=== PATIENT | female | born 1995 | race Two or more races ===

== ENCOUNTER 2023-08-10 17:41 | Emergency (ER) | payer OTHER ==
[~2023-08-10] VITALS: Ht 149.9 cm; Wt 59.0 kg
== END 2023-08-10 20:43 | disposition home or self-care (01) ==
LOC: ER 17:41
DX: S82.891A Other fracture of right lower leg, initial encounter for closed fracture (principal); X50.1XXA Overexertion from prolonged static or awkward postures, initial encounter; Y93.9 Activity, unspecified; Y92.9 Unspecified place or not applicable; Y99.9 Unspecified external cause status

== ENCOUNTER 2023-09-18 08:45 | Outpatient (CLI) | payer OTHER | END 2023-09-18 09:03 | disposition home or self-care (01) | LOC: RAD 08:45 | PROVIDERS: ATTEND Orthopaedic Surgery | DX: S92.351A Displaced fracture of fifth metatarsal bone, right foot, initial encounter for closed fracture (principal) ==

== ENCOUNTER 2023-10-23 10:02 | Outpatient (CLI) | payer OTHER | END 2023-10-23 10:13 | disposition home or self-care (01) | LOC: RAD 10:02 | PROVIDERS: ATTEND Orthopaedic Surgery | DX: S92.351D Displaced fracture of fifth metatarsal bone, right foot, subsequent encounter for fracture with routine healing (principal) ==

== ENCOUNTER 2024-07-16 05:30 | Day surgery (SDC) | payer OTHER ==
[2024-07-11 09:49] LABS: HEMATOCRIT 41.3 % (36.0-45.00); HEMOGLOBIN 13.8 g/dL (12.0-15.00); MEAN CORPUSCULAR HEMOGLOBIN 29.1 pg (27.00-32.0); MEAN CORPUSCULAR HGB CONC 33.4 g/dl (32.0-36.0); PLATELET COUNT 221 K/uL (150-450); RED BLOOD COUNT 4.75 M/uL (4.00-6.00); RED CELL DISTRIBUTION WIDTH 13.7 % (11.5-14.5)
[2024-07-11 09:57] LABS: PH,URINE 5.5 (5.0-8.0); URINE APPEARANCE Clear; URINE BILIRRUBIN Negative (NEGATIVE); URINE BLOOD Negative; URINE COLOR Yellow; URINE GLUCOSE Negative (NEGATIVE); URINE KETONE Negative (NEGATIVE); URINE LEUKOCYTE Negative; URINE NITRATE Negative; URINE PROTEIN Negative (NEGATIVE); URINE UROBILINOGEN 0.2 E.U./dl
[2024-07-11 10:01] LABS: URINE BACTERIA 181.4 uL (0.0-1933); URINE EPITHELIAL CELLS 7.5 uL (0.0-38.8); URINE RBC 6.2 uL (0.0-20.8)
[2024-07-11 10:14] LABS: INR 1.02; PARTIAL THROMBOPLASTIN TIME 31.9 SECONDS (22.0-34.0); PROTHROMBIN TIME 11.1 SECONDS (9.0-11.5)
[2024-07-11 10:31] LABS: URINE CAST 0.15 uL (0.0-1.40)
[2024-07-11 10:48] LABS: ALBUMIN 4.4 gm/dL (3.4-5.0); BILIRUBIN TOTAL 0.35 mg/dL (0.3-1.2); CALCIUM 9.4 mg/dL (8.5-10.1); CREATININE SERUM 0.76 mg/dL (0.55-1.02); GFR 91.29; GLOBULINA 3.2 G/DL (2.4-3.5); POTASSIUM 4.09 mEq/L (3.5-5.1); TOTAL PROTEIN 7.6 gm/dL (6.4-8.2)
[2024-07-16] MEDS ORDERED: LIDOCAINE HCL 1%/EPINEPHRINE 20ML VIAL IJ SCH (08:45)
[2024-07-16] MEDS ORDERED: POVIDONE-IODINE 118 ML BOTT TOP SCH (08:45)
[2024-07-16] MEDS ORDERED: MORPHINE SULFATE 4 MG/ML VIAL IV PRN (11:00)
[2024-07-16] MEDS ORDERED: ONDANSETRON HCL 2 MG/ML VIAL IV PRN (11:00)
[2024-07-16] MEDS ORDERED: RINGERS SOLUTION,LACTATED 1,000 ML IV SCH (11:00)
[2024-07-16] MEDS ORDERED: KETOROLAC TROMETHAMINE 30 MG VIAL IV PRN (11:00)
== END 2024-07-16 15:40 | disposition home or self-care (01) ==
LOC: CIR.AMB 05:30
PROVIDERS: ATTEND Student in an Organized Health Care Education/Training Program
DX: D06.9 Carcinoma in situ of cervix, unspecified (principal)

== ENCOUNTER 2024-12-20 21:04 | Emergency (ER) | payer OTHER ==
[~2024-12-20] VITALS: Ht 149.9 cm; Wt 61.2 kg
[2024-12-20] MEDS ORDERED: MEDROLPACK PO (23:16)
[2024-12-20] MEDS ORDERED: NORFLEX100MG PO (23:16)
[2024-12-20] MEDS ORDERED: NEURONTIN300 MG PO (23:16)
== END 2024-12-21 00:43 | disposition home or self-care (01) ==
LOC: ER 21:07
DX: G56.01 Carpal tunnel syndrome, right upper limb (principal)

== ENCOUNTER 2025-01-17 16:46 | Emergency (ER) | payer OTHER ==
[~2025-01-17] VITALS: Ht 149.9 cm; Wt 59.9 kg
[~2025-01-17 16:46] MED LIST: MEDROLPACK PO; NEURONTIN300 MG PO; NORFLEX100MG PO
[2025-01-17] MEDS ORDERED: METOCLOPRAMIDE HCL 5 MG/ML VIAL ONE (17:41)
[2025-01-17] MEDS ORDERED: KETOROLAC TROMETHAMINE 30 MG VIAL ONE (17:41)
[2025-01-17] MEDS ORDERED: 0.9 % SODIUM CHLORIDE 500 ML IV ONE (17:45)
[2025-01-17] MEDS ORDERED: METOCLOPRAMIDE HCL 10 MG in DEXTROSE 5 % IN WATER 50 ML IV ONE (17:45)
[2025-01-17] MEDS ORDERED: KETOROLAC TROMETHAMINE 30 MG VIAL IV ONE (17:45)
[2025-01-17] MEDS ORDERED: NAPROXEN500 MG PO (19:43)
[2025-01-17] MEDS ORDERED: METOCLOPRAMIDE10 MG PO (19:43)
== END 2025-01-17 21:49 | disposition home or self-care (01) ==
LOC: ER 16:47
DX: G43.909 Migraine, unspecified, not intractable, without status migrainosus (principal)

== ENCOUNTER 2025-08-15 00:07 | Emergency (ER) | payer OTHER ==
[~2025-08-15] VITALS: Ht 149.9 cm; Wt 59.0 kg
[~2025-08-15 00:07] MED LIST changes: +METOCLOPRAMIDE10 MG PO; +NAPROXEN500 MG PO
[2025-08-15] MEDS ORDERED: NAPHAZOLINE HCL/PHENIRAMINE 20 DR/ML DROPS OP STA (01:56)
[2025-08-15] MEDS ORDERED: NAPHAZOLINE HCL/PHENIRAMINE 20 DR/ML DROPS OP ONE (02:00)
[2025-08-15] MEDS ORDERED: REDNESS RELIEF15 ML OP (02:07)
== END 2025-08-15 03:07 ==
LOC: ER 00:08
DX: H10.10 Acute atopic conjunctivitis, unspecified eye (principal); H10.9 Unspecified conjunctivitis